=== PATIENT | male | born 1980 | race Caucasian/White ===

== ENCOUNTER 2018-04-06 17:51 | Emergency (ER) | payer OTHER, SELFPAY ==
[2018-04-06 17:52] VITALS: BP 141/88; PULSE 76; RESP 18; TEMP 36.7; O2SAT 98; BMI 28.2
--- NOTE | 2018-04-06 18:05 | RAD_ITS ---
STUDY: X-RAY - RIGHT SHOULDER REASON FOR EXAM: Male, 37 years old. Pain and decreased range of motion. TECHNIQUE: 4 view(s) of the shoulder. COMPARISON: None. FINDINGS: Normal glenohumeral articulation. Normal acromioclavicular joint. Normal acromion. Normal humeral head and visualized proximal humerus. The soft tissue structures are unremarkable. There is no demonstrated fracture. Normal visualized pulmonary apex. RAD/Shoulder min 2 Views IMPRESSION: Normal x-ray examination of the shoulder. Electronically Signed: Elian Ko MD at 18:39 EDT , Service support ,
--- NOTE | 2018-04-06 19:02 | ED.DCSUM_ITS ---
- ER Visit Summary Date of Service: 04/06/18 Chief Complaint: Right shoulder pain History of Present Illness: The patient is a 37 M who is right-hand dominant. Patient states he is lifting an object over his head 2 days ago. He has had pain to the right shoulder since that time. He was seen by a chiropractor today who thought he had a dislocation. Patient states the chiropractor was trying to manipulate his arm to reduce it but was unable. He denies paresthesias. He has been taking ibuprofen. Physical Examination: Vital signs gross unremarkable. Patient sitting in a bedside chair. Head neck examination was no C-spine tenderness. Heart is regular rate and rhythm. Right upper extremity examination was tenderness palpation over the AC joint of the right shoulder. There is no obvious deformity. There is tenderness of the pectoralis muscle on the right chest as well as the insertion point onto the proximal humerus. He does have increased pain with external rotation of his arm. There is no evidence of dislocation clinically. He has strong distal pulses and normal sensation. Test Results: Right shoulder x-rays are obtained and normal per radiology. Emergency Department Course and Treatment: Clinically the patient has an AC joint strain at the least. He will be treated with Naprosyn, Flexeril, and a sling. He will be referred to orthopedics for follow-up. Treatment Plan: [] Disposition: Discharge Impression: Right AC strain This note was generated with [employer] dictation software. It may contain incorrect words, spelling, and punctuation that were not noted in review of the chart prior to signing ED Disposition - Plan for ED Patient: Chief Complaint: Upper Extremity Injury Referrals: Lee Fischer [Primary Care Provider] -
--- NOTE | 2018-04-06 19:02 | ED.DEP ---
ED Disposition - Plan for ED Patient: Disposition: Home or Assisted Living Chief Complaint: Upper Extremity Injury Instructions: ED Sprain AC Joint Prescriptions: Naproxen [Naprosyn] 500 mg PO BID PRN #20 tablet Cyclobenzaprine [Flexeril] 10 mg PO TID PRN #20 tablet PRN Reason: Muscle Spasm Referrals: Lee Fischer [Primary Care Provider] - Armando Velazquez DO [STAFF PHYSICIAN] - As soon as possible Angy Platt DO [STAFF PHYSICIAN] - As soon as possible
[2018-04-06] MEDS: Naproxen 500 MG Tablet PO (19:12)
== END 2018-04-06 19:23 | disposition home or self-care (01) ==
PROVIDERS: Emergency Provider Emergency Medicine; Family Provider Family Medicine; PCP Family Medicine
DX: S46.911A Strain of unspecified muscle, fascia and tendon at shoulder and upper arm level, right arm, initial encounter (principal); X50.9XXA Other and unspecified overexertion or strenuous movements or postures, initial encounter; Y93.9 Activity, unspecified; Y92.9 Unspecified place or not applicable
CPT/HCPCS: 73030; 99283